=== PATIENT | female | born 1935 | race Caucasian/White ===

== ENCOUNTER 2017-02-16 18:17 | Inpatient (IN) | payer MEDICARE, OTHER ==
[~2017-02-16] VITALS: Ht 160 cm; Wt 59.1 kg
[~2017-02-16 18:17] MED LIST: ACET325T9 PO; ACET500T68 PO; ALBU1.25 NEB; ALLO100T PO; ATEN-57 PO; ATEN25TA PO; ATOR10TA60 PO; ATOR20TA PO; AZIT500T PO; CETI10TA16 PO; CLOT15CR4 TP; CYAN10005 PO; CYCL-331 PO; DEXT15DR5 OP; DEXT1DRO7 OP; DICL100G18 TP; DIVA125C PO; DOCU100C28 PO; DULO30CA2 PO; DULO30CA43 PO; DULO60CA6 PO; Divalproex Sodium PO; FERR325T72 PO; FLUT1DIS5 IH; FURO20TA3 PO; GABA-587 PO; GABA600T2 PO; GLUC1KIT IM; HALO2TAB PO; HALO5TAB PO; HYDR-2758 PO; HYDR25SU18 RC; HYDR25SU4 RC; HYDR28.311 RC; HYDR42CR2 TP; HYDR453. TP; INSU100I17 SQ; INSU100V13 SQ; INSU100V31 SQ; Ipratropium/Albuterol Sulfate NEB; LORA0.5T PO; LOSA50TA6 PO; MAG30ORA2 PO; MAG355OR31 PO; MAGN2400 PO; METH29OI TP; OMEP20TA8 PO; PANT40TA5 PO; POLY15DR27 OU; POLY17PO5 PO; POTA20TA4 PO; QUET25TA5 PO; QUET50TA5 PO; TIOT18CA IH; TRAZ-90 PO; TRAZ50TA15 PO; Trazodone Hcl PO; VANC125C2 PO; [UNRECOGNIZED DRUG - CODE] PO
--- NOTE | 2017-02-16 18:28 | PHYS DOC ---
Past History Past Medical History: Anemia, Anxiety, Bipolar, COPD, Depression, Diabetes, GERD, Hypertension, Schizophrenia, Other Past Surgical History: Cholecystectomy, Other Alcohol Use: None Drug Use: None Adult General Chief Complaint Chief Complaint: PSYCH EVALUATION [facility] HPI Patient is a 72 year old female who presents with psych evaluation medical clearance. She is being admitted to [facility] for hallucinations and agitation. She does have known schizoaffective disorder. She presents with complaint of chronic pain to her lower legs. Otherwise no other complaints or injuries. Review of Systems Review of Systems Constitutional: Denies fever or chills Eyes: Denies change in visual acuity, redness, or eye pain HENT: Denies nasal congestion or sore throat Respiratory: Denies cough or shortness of breath Cardiovascular: No additional information not addressed in HPI . Denies chest pain. GI: Denies abdominal pain, nausea, vomiting, bloody stools or diarrhea : Denies dysuria or hematuria Musculoskeletal: Denies back pain. Chronic pain to bilateral lower legs. Integument: Denies rash or skin lesions Neurologic: Denies headache, focal weakness or sensory changes Current Medications Current Medications Current Medications Medications (Trade) Dose Ordered Sig/Linda Start Time Stop Time Status Last Admin Dose Admin Ceftriaxone Sodium 1 gm/ Sodium Chloride 50 ml @ 100 mls/hr 1X ONCE 02/16/17 19:45 02/16/17 20:14 UNV Allergies Allergies Allergies Coded Allergies Type Severity Reaction Last Updated Verified Sulfa (Sulfonamide Antibiotics) Allergy Intermediate 03/14/15 Yes codeine Allergy Intermediate 03/14/15 Yes I S O L A T I O N *CONTACT* Allergy Unknown 03/18/15 Yes Physical Exam Physical Exam Constitutional: Well developed, well nourished, no acute distress, non-toxic appearance. HENT: Normocephalic, atraumatic, bilateral external ears normal, oropharynx moist, no oral exudates, nose normal. Eyes: PERRLA, EOMI, conjunctiva normal, no discharge. Neck: Normal range of motion, no tenderness, supple, no stridor. Cardiovascular:Heart rate regular rhythm, no murmur Lungs & Thorax: Bilateral breath sounds clear to auscultation Abdomen: Bowel sounds normal, soft, no tenderness, no masses, no pulsatile masses. Skin: Warm, dry, no erythema, no rash. Back: No tenderness, no CVA tenderness. Extremities: No tenderness, no cyanosis, no clubbing, ROM intact, no edema. Neurologic: Alert and oriented X 3, normal motor function, normal sensory function, no focal deficits noted. Psychologic: Affect normal, judgement normal, mood normal. Current Patient Data Vital Signs Vital Signs Date Time Temp Pulse Resp B/P (MAP) Pulse Ox O2 Delivery O2 Flow Rate FiO2 02/16/17 18:26 97.9 75 20 93 Room Air 124/80 Lab Results Laboratory Tests Test 02/16/17 18:55 White Blood Count 7.4 x10^3/uL Red Blood Count 4.04 x10^6/uL Hemoglobin 11.6 g/dL Hematocrit 34.3 % Mean Corpuscular Volume 85 fL Mean Corpuscular Hemoglobin 29 pg Mean Corpuscular Hemoglobin Concent 34 g/dL Red Cell Distribution Width 13.6 % Platelet Count 224 x10^3/uL Neutrophils (%) (Auto) 48 % Lymphocytes (%) (Auto) 38 % Monocytes (%) (Auto) 12 % Eosinophils (%) (Auto) 2 % Basophils (%) (Auto) 1 % Neutrophils # (Auto) 3.6 x10^3uL Lymphocytes # (Auto) 2.8 x10^3/uL Monocytes # (Auto) 0.9 x10^3/uL Eosinophils # (Auto) 0.2 x10^3/uL Basophils # (Auto) 0.0 x10^3/uL Urine Collection Type U cath Urine Color Straw Urine Clarity Hazy Urine pH 6.0 Urine Specific [place] 1.025 Urine Protein Neg Urine Glucose (UA) Neg mg/dL Urine Ketones (Stick) Neg mg/dL Urine Blood Neg Urine Nitrite Pos Urine Bilirubin Neg Urine Urobilinogen Dipstick 0.2 mg/dL Urine Leukocyte Esterase Neg Urine RBC 1-2 /HPF Urine WBC 5-10 /HPF Urine Squamous Epithelial Cells None /LPF Urine Bacteria Many /HPF Sodium Level 143 mmol/L Potassium Level 4.2 mmol/L Chloride Level 105 mmol/L Carbon Dioxide Level 35 mmol/L Anion Gap 3 Blood Urea Nitrogen 19 mg/dL Creatinine 1.0 mg/dL Estimated GFR (Cockcroft-Gault) 53.2 BUN/Creatinine Ratio 19 Glucose Level 142 mg/dL Calcium Level 8.8 mg/dL Magnesium Level 1.9 mg/dL Total Bilirubin 0.2 mg/dL Aspartate Amino Transf (AST/SGOT) 12 U/L Alanine Aminotransferase (ALT/SGPT) 14 U/L Alkaline Phosphatase 65 U/L Total Protein 6.6 g/dL Albumin 2.7 g/dL Albumin/Globulin Ratio 0.7 Current Medications Medications (Trade) Dose Ordered Sig/Linda Route PRN Reason Start Time Stop Time Status Last Admin Dose Admin Ceftriaxone Sodium 1 gm/ Sodium Chloride 50 ml @ 100 mls/hr 1X ONCE IV 02/16/17 19:45 02/16/17 20:14 UNV EKG EKG EKG interpreted by myself at 1820 5 PM. Heart rate is 82, normal axis. No acute ST elevation. Nonspecific ST changes. Course & Med Decision Making Course & Med Decision Making Pertinent Labs and Imaging studies reviewed. (See chart for details) Laboratory data was unremarkable except for a urinary tract infection. She was dosed with Rocephin 1 g IM here. She requested something for pain for her chronic bilateral lower leg pain. She is given Tylenol here by mouth. Patient otherwise been doing well here. She is constantly yelling stating "I need to see the doctor". Easily consolable however. Dragon Disclaimer Dragon Disclaimer This chart was dictated in whole or in part using Voice Recognition software in a busy, high-work load, and often noisy Emergency Department environment. It may contain unintended and wholly unrecognized errors or omissions. Departure Departure: Impression: Primary Impression: UTI (lower urinary tract infection) Additional Impressions: Hallucination Agitation Disposition: 65 XFER TO PSYCH HOSP/UNIT Condition: GOOD Referrals: ROBERT VO MD (PCP) Problem Qualifiers AMAN ESPINAL MD February 16, 2017 18:28
[2017-02-16 19:11] LABS: BASO % 1 % (0-3); EOS # 0.2 x10^3/uL (0.0-0.7); EOS % 2 % (0-3); HEMATOCRIT 34.3 % (36.0-47.0); HEMOGLOBIN 11.6 g/dL (12.0-15.5); LYMPH # 2.8 x10^3/uL (1.0-4.8); LYMPH % 38 % (24-48); MEAN CORPUSCULAR HEMOGLOBIN 29 pg (25-35); MEAN CORPUSCULAR HGB CONC 34 g/dL (31-37); MEAN CORPUSCULAR VOLUME 85 fL (79-100); MONO # 0.9 x10^3/uL (0.0-1.1); MONO % 12 % (0-9); NEUT # 3.6 x10^3uL (1.8-7.7); NEUT % 48 % (31-73); PLATELET COUNT 224 x10^3/uL (140-400); RED BLOOD COUNT 4.04 x10^6/uL (3.50-5.40); RED CELL DISTRIBUTION WIDTH 13.6 % (11.5-14.5); WHITE BLOOD COUNT 7.4 x10^3/uL (4.0-11.0)
[2017-02-16 19:21] LABS: ALBUMIN 2.7 g/dL (3.4-5.0); ALBUMIN/GLOBULIN RATIO 0.7 (1.0-1.7); CALCIUM 8.8 mg/dL (8.5-10.1); GFR 53.2; MAGNESIUM 1.9 mg/dL (1.8-2.4); POTASSIUM 4.2 mmol/L (3.5-5.1); TOTAL BILIRUBIN 0.2 mg/dL (0.2-1.0); TOTAL PROTEIN 6.6 g/dL (6.4-8.2)
[2017-02-16 19:29] LABS: BILIRUBIN,URINE NEG (NEG); CLARITY,URINE HAZY; COLOR,URINE STRAW; GLUCOSE,URINE NEG (NEG)
[2017-02-16 19:30] LABS: BACTERIA,URINE MANY /HPF (0-FEW); NITRITE,URINE POS (NEG); UROBILINOGEN,URINE 0.2 mg/dL (0.2 mg/dL)
--- NOTE | 2017-02-16 19:44 | EKG ---
[address] [address] Test Date: 2017-02-16 Test Time: 18:26:59 Pat Name: NATALYA CARNEY Department: Room: Gender: F Tentering Machine Off Bearer: LUIS ARMANDO : 1935 Requested By: AMAN ESPINAL Order Number: [id number] Reading MD: Jeremias Reynolds Measurements Intervals [place] Rate: 72 P: 62 AL: 180 QRS: 70 QRSD: 90 T: 62 QT: 374 QTc: 411 Interpretive Statements SINUS RHYTHM Electronically Signed On 02-17-2017 9:11:43 CDT by Jeremias Reynolds
[2017-02-16] MEDS ORDERED: ACETAMINOPHEN 500 MG TABLET PO ONE (20:15)
[2017-02-16] MEDS ORDERED: cefTRIAXone IM 1 GM VIAL IM ONE (20:15)
[2017-02-16] MEDS ORDERED: MAGNESIUM HYDROXIDE 2,400 MG/30 ML ORAL.SUSP. PO PRN (20:45)
[2017-02-16] MEDS ORDERED: MAG HYDROX/AL HYDROX/SIMETH 30 ML ORAL.SUSP PO PRN (20:45)
[2017-02-16] MEDS ORDERED: METHYL SALICYLATE/MENTHOL TOPICAL OINTMENT 29GM TUBE. TP PRN (20:45)
[2017-02-16] MEDS ORDERED: ACETAMINOPHEN 325 MG TABLET PO PRN (20:45)
[2017-02-16 20:48] VITALS: BP 141/64
[2017-02-16] MEDS ORDERED: NYST15PO9 TP (20:58)
--- NOTE | 2017-02-16 21:00 | PDOC ---
Exam Rohith Demential Exam: Rohith Note: Please also refer to the separate dictated note~for this date of service dictated separately.~Patient seen individually. Discussed the patient with Nursing staff reviewed the chart.~Reviewed interim history and current functioning. Reviewed vital signs,~Labs/ Radiology~and current medications noted below. Continue current treatment with the changes noted in the dictated addendum note Assessment: Vital Signs: Vital Signs Date Time Temp Pulse Resp B/P (MAP) Pulse Ox O2 Delivery O2 Flow Rate FiO2 02/16/17 20:48 98.4 73 20 141/64 (89) 98 Nasal Cannula 3.0 Labs: Laboratory Tests Test 02/16/17 18:55 White Blood Count 7.4 x10^3/uL (4.0-11.0) Red Blood Count 4.04 x10^6/uL (3.50-5.40) Hemoglobin 11.6 g/dL (12.0-15.5) L Hematocrit 34.3 % (36.0-47.0) L Mean Corpuscular Volume 85 fL (79-100) Mean Corpuscular Hemoglobin 29 pg (25-35) Mean Corpuscular Hemoglobin Concent 34 g/dL (31-37) Red Cell Distribution Width 13.6 % (11.5-14.5) Platelet Count 224 x10^3/uL (140-400) Neutrophils (%) (Auto) 48 % (31-73) Lymphocytes (%) (Auto) 38 % (24-48) Monocytes (%) (Auto) 12 % (0-9) H Eosinophils (%) (Auto) 2 % (0-3) Basophils (%) (Auto) 1 % (0-3) Neutrophils # (Auto) 3.6 x10^3uL (1.8-7.7) Lymphocytes # (Auto) 2.8 x10^3/uL (1.0-4.8) Monocytes # (Auto) 0.9 x10^3/uL (0.0-1.1) Eosinophils # (Auto) 0.2 x10^3/uL (0.0-0.7) Basophils # (Auto) 0.0 x10^3/uL (0.0-0.2) Urine Collection Type U cath Urine Color Straw Urine Clarity Hazy Urine pH 6.0 Urine Specific [place] 1.025 Urine Protein Neg (NEG-TRACE) Urine Glucose (UA) Neg mg/dL (NEG) Urine Ketones (Stick) Neg mg/dL (NEG) Urine Blood Neg (NEG) Urine Nitrite Pos (NEG) Urine Bilirubin Neg (NEG) Urine Urobilinogen Dipstick 0.2 mg/dL (0.2 mg/dL) Urine Leukocyte Esterase Neg (NEG) Urine RBC 1-2 /HPF (0-2) Urine WBC 5-10 /HPF (0-4) Urine Squamous Epithelial Cells None /LPF Urine Bacteria Many /HPF (0-FEW) Sodium Level 143 mmol/L (136-145) Potassium Level 4.2 mmol/L (3.5-5.1) Chloride Level 105 mmol/L (98-107) Carbon Dioxide Level 35 mmol/L (21-32) H Anion Gap 3 (6-14) L Blood Urea Nitrogen 19 mg/dL (7-20) Creatinine 1.0 mg/dL (0.6-1.0) Estimated GFR (Cockcroft-Gault) 53.2 BUN/Creatinine Ratio 19 (6-20) Glucose Level 142 mg/dL (70-99) H Calcium Level 8.8 mg/dL (8.5-10.1) Magnesium Level 1.9 mg/dL (1.8-2.4) Total Bilirubin 0.2 mg/dL (0.2-1.0) Aspartate Amino Transferase (AST) 12 U/L (15-37) L Alanine Aminotransferase (ALT) 14 U/L (14-59) Alkaline Phosphatase 65 U/L (46-116) Total Protein 6.6 g/dL (6.4-8.2) Albumin 2.7 g/dL (3.4-5.0) L Albumin/Globulin Ratio 0.7 (1.0-1.7) L Current Medications: Meds: Current Medications Ceftriaxone Sodium 1 gm/ Sodium Chloride 50 ml @ 100 mls/hr 1X ONCE IV ; Start 02/16/17 at 19:45; Stop 02/16/17 at 19:48; Status DC Ceftriaxone Sodium (Rocephin Im) 1 gm 1X ONCE IM Last administered on t 20:01; Start 02/16/17 at 20:15; Stop 02/16/17 at 20:16; Status DC Acetaminophen (Tylenol) 500 mg 1X ONCE PO ; Start 02/16/17 at 20:15; Stop 02/16 at 20:16; Status DC Acetaminophen (Tylenol) 650 mg PRN Q6HRS PRN PO PAIN / TEMP; Start 02/16/17 at 20:45; Status UNV Multi-Ingredient Ointment (Analgesic [place]) 1 j luis PRN QID PRN TP MUSCLE PAIN; Start 02/16/17 at 20:45; Status UNV Al Hydroxide/Mg Hydroxide (Mylanta Plus Xs) 15 ml PRN AFTMEALHC PRN PO DYSPEPSIA; Start 02/16/17 at 20:45; Status UNV Magnesium Hydroxide (Milk Of Magnesia) 2,400 mg PRN QHS PRN PO CONSTIPATION; Start 02/16/17 at 20:45; Status UNV Active Scripts Active [Trazodone Hcl] 100 MG Tablet 100 Mg PO QHS [Ipratropium/Albuterol Sulfate] 3 ML Nebu 3 Ml NEB RTQID Novolog Flexpen (Insulin Aspart) 300 Units/3 Ml Insuln.pen 8 Units SQ TIDAC [Divalproex Sodium] 125 MG Cap.sprink 500 Mg PO DAILY Lipitor (Atorvastatin Calcium) 20 Mg Tablet 20 Mg PO QHS Tenormin (Atenolol) 50 Mg Tablet 50 Mg PO DAILY Reported Nystatin 15 Gm Powder 1 J Luis TP PRN TID PRN Analgesic [place] (Methyl Salicylate/Menthol) 29 Gm Oint...g. 1 J Luis TP PRN QID PRN Seroquel (Quetiapine Fumarate) 50 Mg Tablet 50 Mg PO DAILY08 Acetaminophen 500 Mg Tablet 650 Mg PO PRN Q6HRS PRN Trazodone Hcl 100 Mg Tablet 100 Mg PO HS Artificial Tears (Polyvinyl Alcohol) 15 Ml Drops 1 Drop OU TID Pantoprazole Sodium 40 Mg Tablet.dr 40 Mg PO DAILYAC Mag-Al Plus Xs Suspension (Mag Hydrox/Al Hydrox/Simeth) 30 Ml Oral.susp 15 Ml PO PRN AFTMEALHC PRN Anucort-Hc (Hydrocortisone Acetate) 25 Mg Supp.rect 25 Mg RC PRN BID PRN Cortaid (Hydrocortisone) 42 Gm Cream..g. 1 J Luis TP BID Cymbalta (Duloxetine Hcl) 30 Mg Capsule.dr 30 Mg PO DAILY Voltaren (Diclofenac Sodium) 100 Gm Gel..gram. 1 J Luis TP PRN BID PRN Haloperidol 5 Mg Tablet 2.5 Mg PO PRN BID PRN Bipolar, Anxiety LAST DOSE GIVEN: DATE: TIME: NEXT DOSE DUE: DATE: TIME: Neurontin (Gabapentin) 400 Mg Capsule 400 Mg PO TID Pain LAST DOSE GIVEN: DATE: TIME: NEXT DOSE DUE: DATE: TIME: Miralax (Polyethylene Glycol 3350) 17 Gm Powd.pack 17 Gm PO PRN DAILY PRN Constipation LAST DOSE GIVEN: DATE: TIME: NEXT DOSE DUE: DATE: TIME: Milk Of Magnesia (Magnesium Hydroxide) 2,400 Mg/10 Ml Oral.susp 2,400 Mg PO PRN QHS PRN Constipation LAST DOSE GIVEN: DATE: TIME: NEXT DOSE DUE: DATE: TIME: Feosol (Ferrous Sulfate) 325 Mg Tablet 325 Mg PO DAILY Low Iron, Supplemnt LAST DOSE GIVEN: DATE: TIME: NEXT DOSE DUE: DATE: TIME: Depakote Sprinkle (Divalproex Sodium) 125 Mg Cap.sprink 500 Mg PO HS Bipolar LAST DOSE GIVEN: DATE: TIME: NEXT DOSE DUE: DATE: TIME: Tylenol (Acetaminophen) 325 Mg Tablet 650 Mg PO TID Pain LAST DOSE GIVEN: DATE: TIME: NEXT DOSE DUE: DATE: TIME: Clotrimazole 15 Gm Cream..g. 1 J Luis TP BID Yeast LAST DOSE GIVEN: DATE: TIME: NEXT DOSE DUE: DATE: TIME: Lorazepam 0.5 Mg Tablet 0.5 Mg PO PRN Q8HRS PRN Anxiety LAST DOSE GIVEN: DATE: TIME: NEXT DOSE DUE: DATE: TIME: Glucagon Emergency Kit (Glucagon,Human Recombinant) 1 Mg Kit 1 Mg IM PRN DAILY PRN Low blood sugar LAST DOSE GIVEN: DATE: TIME: NEXT DOSE DUE: DATE: TIME: Vitamin B-12 (Cyanocobalamin (Vitamin B-12)) 1,000 Mcg Tablet 1,000 Mcg PO DAILY Supplement LAST DOSE GIVEN: DATE: TIME: NEXT DOSE DUE: DATE: TIME: Seroquel (Quetiapine Fumarate) 25 Mg Tablet 100 Mg PO QHS Anxiety/Agitation LAST DOSE GIVEN: DATE: TIME: NEXT DOSE DUE: DATE: TIME: Losartan Potassium 50 Mg Tablet 50 Mg PO BID Hypertension LAST DOSE GIVEN: DATE: TIME: NEXT DOSE DUE: DATE: TIME: Docusate Sodium 100 Mg Capsule 100 Mg PO PRN DAILY PRN Constipation LAST DOSE GIVEN: DATE: TIME: NEXT DOSE DUE: DATE: TIME: Allopurinol 100 Mg Tablet 100 Mg PO DAILY Gout LAST DOSE GIVEN: DATE: TIME: NEXT DOSE DUE: DATE: TIME: Advair 500-50 Diskus (Fluticasone/Salmeterol) 1 Each Disk.w.dev 1 Puff IH BID SHORTNESS OF BREATH LAST DOSE GIVEN: DATE: TIME: NEXT DOSE DUE: DATE: TIME: Levemir (Insulin Detemir) 100 Unit/1 Ml Vial 12 Unit SQ BID Diabetes/high blood sugar LAST DOSE GIVEN: DATE: TIME: NEXT DOSE DUE: DATE: TIME: TORO JAY MD February 16, 2017 21:00
[2017-02-16] MEDS ORDERED: NITR0.4T SL (21:01)
[2017-02-16] MEDS ORDERED: ONDA4TAB10 PO (21:04)
[2017-02-16 21:07] LABS: VAL ACID 45 mcg/mL (50-100)
[2017-02-16] MEDS ORDERED: DIVA500T4 PO (21:07)
[2017-02-16] MEDS ORDERED: TRAZ50TA15 PO (21:09)
[2017-02-16] MEDS ORDERED: VENL75CA6 PO (21:13)
[2017-02-16] MEDS ORDERED: AMLO5TAB2 PO (21:16)
[2017-02-16] MEDS ORDERED: CARV12.52 PO (21:18)
[2017-02-16] MEDS ORDERED: TRAM50TA PO (21:19)
[2017-02-16] MEDS ORDERED: BUSP5TAB PO (21:23)
[2017-02-16] MEDS ORDERED: CLON1TAB3 PO (21:23)
[2017-02-16] MEDS ORDERED: IPRA3AMP NEB (21:32)
[2017-02-16] MEDS ORDERED: NITROGLYCERIN SUBLINGUAL 0.4 MG BOTTLE OF 25. SL PRN (22:15)
[2017-02-16] MEDS: traMADol 50 MG TABLET PO SCH (23:01)
[2017-02-16] MEDS: clonazePAM 1 MG TABLET PO SCH (23:01)
[2017-02-16] MEDS: traZODone 50 MG TABLET. PO SCH (23:02)
[2017-02-16] MEDS: amLODIPine BESYLATE 5 MG TABLET PO SCH (23:02)
[2017-02-16] MEDS: busPIRone 5 MG TABLET. PO SCH (23:04)
[2017-02-17] MEDS: traMADol 50 MG TABLET PO SCH ×4 (05:00→23:04)
[2017-02-17] MEDS: ALBUTEROL SULFATE 2.5 MG/3 ML NEBU. NEB SCH ×4 (05:37→20:00)
[2017-02-17] MEDS: busPIRone 5 MG TABLET. PO SCH ×3 (07:37→20:30)
[2017-02-17] MEDS: amLODIPine BESYLATE 5 MG TABLET PO SCH ×2 (07:39→20:33)
[2017-02-17] MEDS: clonazePAM 1 MG TABLET PO SCH (07:43)
[2017-02-17] MEDS ORDERED: NYSTATIN TOPICAL POWDER 15GM BOTTLE. TP PRN (07:45)
[2017-02-17] MEDS ORDERED: POLYETHYLENE GLYCOL 3350 17 GM PACKET. PO PRN (07:45)
[2017-02-17] MEDS ORDERED: MAG HYDROX/AL HYDROX/SIMETH 30 ML ORAL.SUSP PO PRN (07:45)
[2017-02-17] MEDS ORDERED: ONDANSETRON ODT 4 MG TAB.RAPDIS PO PRN (07:45)
[2017-02-17] MEDS: CARVEDILOL 12.5 MG TABLET PO SCH ×2 (07:56→16:44)
[2017-02-17] MEDS ORDERED: MAGNESIUM HYDROXIDE 2,400 MG/30 ML ORAL.SUSP. PO PRN (08:00)
[2017-02-17] MEDS ORDERED: DIVALPROEX ER 500 MG TAB.ER.24H PO SCH (09:00)
[2017-02-17] MEDS ORDERED: VENLAFAXINE XR 37.5 MG CAP.ER.24H. PO SCH (09:00)
[2017-02-17] MEDS ORDERED: QUEtiapine 100 MG TABLET. PO SCH (09:00)
[2017-02-17] MEDS ORDERED: SALMETEROL IH SCH (09:00)
[2017-02-17] MEDS ORDERED: DIVALPROEX 125 MG CAP.SPRINK PO SCH (09:00)
[2017-02-17] MEDS ORDERED: FLUTICASONE IH SCH (09:00)
[2017-02-17] MEDS ORDERED: LOSARTAN 50 MG TABLET. PO SCH (09:00)
[2017-02-17] MEDS: ACETAMINOPHEN 325 MG TABLET PO PRN ×2 (10:07→18:20)
[2017-02-17] MEDS: IPRATRPIUM/ALBUTEROL 0.5/2.5MG 3 ML NEBU. NEB PRN ×2 (10:27→15:48)
[2017-02-17] MEDS: BUDESONIDE 0.5 MG/2 ML NEBU NEB SCH ×2 (10:27→20:00)
[2017-02-17 13:36] LABS: THYROID STIM HORMONE (TSH) 2.71 uIU/mL (0.358-3.740)
[2017-02-17 16:04] VITALS: BP 114/54
--- NOTE | 2017-02-17 20:31 | PDOC ---
Exam Rohith Demential Exam: Rohith Note: Please also refer to the separate dictated note~for this date of service dictated separately.~Patient seen individually. Discussed the patient with Nursing staff reviewed the chart.~Reviewed interim history and current functioning. Reviewed vital signs,~Labs/ Radiology~and current medications noted below. Continue current treatment with the changes noted in the dictated addendum note Assessment: Vital Signs: Vital Signs Date Time Temp Pulse Resp B/P (MAP) Pulse Ox O2 Delivery O2 Flow Rate FiO2 02/17/17 18:16 20 97 Nasal Cannula 3.0 02/17/17 16:44 63 114/54 02/17/17 16:04 97.2 I&O Intake and Output 02/17/17 07:00 Intake Total 360 ml Balance 360 ml Intake Oral 360 ml # Bowel Movements 1 Labs: Laboratory Tests Test 02/17/17 07:26 02/17/17 11:37 02/17/17 16:42 02/17/17 19:20 Glucose (Fingerstick) 101 mg/dL (70-99) H 161 mg/dL (70-99) H 155 mg/dL (70-99) H 150 mg/dL (70-99) H Current Medications: Meds: Current Medications Ceftriaxone Sodium 1 gm/ Sodium Chloride 50 ml @ 100 mls/hr 1X ONCE IV ; Start 02/16/17 at 19:45; Stop 02/16/17 at 19:48; Status DC Ceftriaxone Sodium (Rocephin Im) 1 gm 1X ONCE IM Last administered on 20:01; Start 02/16/17 at 20:15; Stop 02/16/17 at 20:16; Status DC Acetaminophen (Tylenol) 500 mg 1X ONCE PO Last administered on 02/16/17t 20:30 ; Start 02/16/17 at 20:15; Stop 02/16/17 at 20:16; Status DC Acetaminophen (Tylenol) 650 mg PRN Q6HRS PRN PO PAIN / TEMP; Start 02/16/17 at 20:45; Stop 02/17/17 at 07:49; Status DC Multi-Ingredient Ointment (Analgesic [place]) 1 j luis PRN QID PRN TP MUSCLE PAIN; Start 02/16/17 at 20:45 Al Hydroxide/Mg Hydroxide (Mylanta Plus Xs) 15 ml PRN AFTMEALHC PRN PO DYSPEPSIA; Start 02/16/17 at 20:45 Magnesium Hydroxide (Milk Of Magnesia) 2,400 mg PRN QHS PRN PO CONSTIPATION; Start 02/16/17 at 20:45; Stop 02/17/17 at 07:50; Status DC Buspirone HCl (Buspar) 7.5 mg TID PO Last administered on 02/17/17 13:11; Start 02/16/17 at 22:30 Clonazepam (KlonoPIN) 1 mg BID PO Last administered on 02/17/17 07:43; Start 02/16/17 at 22:30; Stop 02/17/17 at 18:06; Status DC Divalproex Sodium (Depakote Er) 500 mg DAILY PO ; Start 02/17/17 at 09:00; Stop 02/17/17 at 09:00; Status DC Quetiapine Fumarate (SEROquel) 100 mg DAILY PO Last administered on 02/17/17 07:43; Start 02/17/17 at 09:00 Trazodone HCl (Desyrel) 50 mg QHS PO Last administered on 02/16/17 23:02; Start 02/16/17 at 22:30 Venlafaxine HCl (Effexor Xr) 75 mg DAILY PO Last administered on 02/17/17 07: 42; Start 02/17/17 at 09:00 Amlodipine Besylate (Norvasc) 5 mg BID PO Last administered on 02/17/17 07:39 ; Start 02/16/17 at 22:30 Nitroglycerin (Nitrostat) 0.4 mg PRN Q5MIN PRN SL CHEST PAIN; Start 02/16/17 at 22:15 Tramadol HCl (Ultram) 50 mg Q6HRS PO Last administered on 02/17/17 16:44; Start 02/17/17 at 00:00 Non-Formulary Medication 2 puff BID IH ; Start 02/17/17 at 09:00; Status UNV Albuterol Sulfate (Ventolin) 2.5 mg RTQID NEB Last administered on 02/17/17 10 :25; Start 02/17/17 at 08:00 Budesonide (Pulmicort) 0.5 mg RTBID NEB Last administered on 5/17/17at 10:27; Start 02/17/17 at 08:00 Acetaminophen (Tylenol) 650 mg PRN Q4HRS PRN PO PAIN / TEMP Last administered on 02/17/17 18:20; Start 02/17/17 at 08:00 Carvedilol (Coreg) 12.5 mg BIDWMEALS PO Last administered on 02/17/17 16:44; Start 02/17/17 at 08:00 Albuterol/ Ipratropium (Duoneb) 3 ml PRN QID PRN NEB SHORTNESS OF BREATH Last administered on 02/17/17 15:48; Start 02/17/17 at 07:45 Losartan Potassium (Cozaar) 50 mg DAILY PO Last administered on 02/17/17 07:56 ; Start 02/17/17 at 09:00 Al Hydroxide/Mg Hydroxide (Mylanta Plus Xs) 15 ml PRN AFTMEALHC PRN PO DYSPEPSIA; Start 02/17/17 at 07:45; Status UNV Nystatin (Nystop) 1 j luis PRN TID PRN TP Redness; Start 02/17/17 at 07:45 Ondansetron HCl (Zofran Odt) 4 mg PRN TID PRN PO NAUSEA/VOMITING; Start at 07:45 Polyethylene Glycol (miraLAX) 17 gm PRN DAILY PRN PO constipation; Start at 07:45 Magnesium Hydroxide (Milk Of Magnesia) 2,400 mg PRN DAILY PRN PO CONSTIPATION; Start 02/17/17 at 08:00 Divalproex Sodium (Depakote Sprinkles) 500 mg DAILY PO Last administered on 07:57; Start 02/17/17 at 09:00 Olanzapine (Zyprexa Zydis) 2.5 mg PRN Q2HR PRN PO PSYCHOSIS Last administered on 02/17/17 09:34; Start 02/17/17 at 09:30 Clonazepam (KlonoPIN) 0.5 mg TID PO ; Start 02/18/17 at 09:00; Stop 02/20/17 at 23:00 Clonazepam (KlonoPIN) 0.5 mg BID PO ; Start 02/21/17 at 09:00 Mirtazapine (Remeron) 7.5 mg QHS PO ; Start 02/17/17 at 21:00 Active Scripts Active Reported Duoneb 0.5-3(2.5) Mg/3 Ml (Albuterol/Ipratropium) 3 Ml Ampul.neb 3 Ml NEB PRN QID PRN Clonazepam 1 Mg Tablet 1 Mg PO BID Buspirone Hcl 5 Mg Tablet 7.5 Mg PO TID Tramadol Hcl (Tramadol HCl) 50 Mg Tablet 50 Mg PO Q6HRS To be given at 1200, 1800, 0000, 0600 Carvedilol 12.5 Mg Tablet 12.5 Mg PO BIDWMEALS Amlodipine Besylate 5 Mg Tablet 5 Mg PO BID Venlafaxine Hcl Er (Venlafaxine Hcl) 75 Mg Cap.er.24h 75 Mg PO DAILY Trazodone Hcl 50 Mg Tablet 50 Mg PO QHS Depakote Er (Divalproex Sodium) 500 Mg Tab.er.24h 500 Mg PO DAILY Zofran Odt (Ondansetron) 4 Mg Tab.rapdis 4 Mg PO PRN TID PRN Nitrostat (Nitroglycerin) 0.4 Mg Tab.subl 0.4 Mg SL PRN PRN Give one tab Q 5 minutes x3 doses for Chest Pain Nystatin 15 Gm Powder 1 J Luis TP PRN TID PRN Acetaminophen 500 Mg Tablet 650 Mg PO PRN Q4HRS PRN Mag-Al Plus Xs Suspension (Mag Hydrox/Al Hydrox/Simeth) 30 Ml Oral.susp 15 Ml PO PRN AFTMEALHC PRN Miralax (Polyethylene Glycol 3350) 17 Gm Powd.pack 17 Gm PO DAILY PRN Constipation LAST DOSE GIVEN: DATE: TIME: NEXT DOSE DUE: DATE: TIME: Milk Of Magnesia (Magnesium Hydroxide) 2,400 Mg/10 Ml Oral.susp 2,400 Mg PO PRN DAILY PRN Constipation LAST DOSE GIVEN: DATE: TIME: NEXT DOSE DUE: DATE: TIME: Seroquel (Quetiapine Fumarate) 25 Mg Tablet 100 Mg PO DAILY Anxiety/Agitation LAST DOSE GIVEN: DATE: TIME: NEXT DOSE DUE: DATE: TIME: Losartan Potassium 50 Mg Tablet 50 Mg PO DAILY Hypertension LAST DOSE GIVEN: DATE: TIME: NEXT DOSE DUE: DATE: TIME: Advair 500-50 Diskus (Fluticasone/Salmeterol) 1 Each Disk.w.dev 2 Puff IH BID SHORTNESS OF BREATH LAST DOSE GIVEN: DATE: TIME: NEXT DOSE DUE: DATE: TIME: TORO JAY MD February 17, 2017 20:31
[2017-02-17] MEDS: traZODone 50 MG TABLET. PO SCH (20:33)
[2017-02-17] MEDS ORDERED: MIRTAZAPINE 7.5 MG TABLET. PO SCH (21:00)
[2017-02-18 00:09] LABS: T3 TOTAL 91 ng/dL (71-180); THYROXINE 5.9 ug/dL (4.5-12.0)
[2017-02-18 02:09] LABS: HEMOGLOBIN A1C 5.5 % (4.8-5.6)
[2017-02-18] MEDS: ALBUTEROL SULFATE 2.5 MG/3 ML NEBU. NEB SCH (05:29)
[2017-02-18 05:42] VITALS: BP 138/59
[2017-02-18] MEDS ORDERED: ACETAMINOPHEN 500 MG TABLET PO ONE (06:00)
[2017-02-18] MEDS: traMADol 50 MG TABLET PO SCH (06:00)
[2017-02-18 06:07] LABS: HEMATOCRIT 39.1 % (36.0-47.0); HEMOGLOBIN 13.1 g/dL (12.0-15.5); RED BLOOD COUNT 4.65 x10^6/uL (3.50-5.40); RED CELL DISTRIBUTION WIDTH 14.1 % (11.5-14.5); WHITE BLOOD COUNT 18.3 x10^3/uL (4.0-11.0)
[2017-02-18 06:20] LABS: BGAS PH 7.4 (7.35-7.45)
[2017-02-18 06:27] LABS: ALBUMIN/GLOBULIN RATIO 0.7 (1.0-1.7); CREATININE 0.9 mg/dL (0.6-1.0); GFR 60.1; POTASSIUM 4.6 mmol/L (3.5-5.1); TOTAL BILIRUBIN 0.4 mg/dL (0.2-1.0); TOTAL PROTEIN 7.4 g/dL (6.4-8.2)
[2017-02-18 06:46] LABS: BACTERIA,URINE 0 /HPF (0-FEW); BILIRUBIN,URINE NEG (NEG); CLARITY,URINE CLEAR; COLOR,URINE YELLOW; GLUCOSE,URINE NEG (NEG); NITRITE,URINE NEG (NEG); RBC,URINE RARE /HPF (0-2); SQUAMOUS EPITHELIAL CELL,UR OCC /LPF; UROBILINOGEN,URINE 0.2 mg/dL (0.2 mg/dL); WBC,URINE RARE /HPF (0-4)
--- NOTE | 2017-02-18 06:57 | RAD ---
INDICATION: Fever and shortness of air COMPARISON: March 2015 FINDINGS: 1 view of chest obtained. Coarsened lung markings throughout bilateral lungs with possible mild hazy opacity right lower lung. Calcific atherosclerosis aorta. Cardiac silhouette not grossly enlarged. Degenerative changes spine. IMPRESSION: Possible mild hazy opacity right lung base. Although this could be from overlap of structures a focus of atelectasis or infiltrate is in the differential. Would obtain follow-up to ensure that this resolves. There is also fullness of the right pulmonary hilum. Could be from a prominent pulmonary artery but cannot exclude enlarged lymph nodes in the region. If further clarification is desired a formal PA and lateral chest radiograph could further evaluate. Coarsened lung markings throughout bilateral lungs. Could be from causes such as emphysema. Electronically signed by: Christos Thompson (February 18, 2017 06:56:32)
[2017-02-18] MEDS ORDERED: CLON0.5T PO (07:03)
[2017-02-18] MEDS ORDERED: clonazePAM 0.5 MG TABLET PO SCH (09:00)
[2017-02-18] MEDS ORDERED: ALBU2.5V5 NEB (11:17)
[2017-02-18] MEDS ORDERED: BUDE0.5A11 NEB (11:19)
[2017-02-18] MEDS ORDERED: METH29OI TP (11:26)
[2017-02-18] MEDS ORDERED: MIRT15TA2 PO (11:28)
[2017-02-18] MEDS ORDERED: OLAN5TAB9 PO (11:31)
--- NOTE | 2017-02-18 22:52 | HP ---
ADMIT DATE: 02/16/2017 IDENTIFYING DATA: The patient is an 81-year-old female referred to us from [facility] by Dr. Gemma Saleh, her primary care physician and Dr. Otto her psychiatrist on account of yelling, hitting, name calling, recent treatment for UTI. She has been non-redirectable, delusional, believes people are killing babies, has convinced other residents at the [facility] is her brother. Adjustments have been made in her psychotropics by Dr. Otto at the [facility]. She has failed all of this resulting in this referral. CHIEF COMPLAINT: "Get out." HISTORY OF PRESENT ILLNESS: The patient has a history of schizoaffective disorder, bipolar type. She has been residing at the above [facility] for some time. In the recent past, she has been increasingly psychotic as noted above verbally, physically aggressive, delusional. She has had sleep and appetite changes. No clear suicidal or homicidal ideation noted. She has failed outpatient psychiatric interventions. PAST PSYCHIATRIC HISTORY: Positive for schizoaffective disorder, bipolar type; generalized anxiety disorder. PAST MEDICAL HISTORY: Recently treated for UTI, positive for COPD, diabetes mellitus, GERD, hypertension, peripheral vascular disease, hypothyroidism, hyperlipidemia, anemia. She is a full code. ALLERGIES: SULFA AND CODEINE. CURRENT PSYCHOTROPICS: [facility]AD was reviewed. FAMILY HISTORY: Noncontributory. SOCIAL HISTORY: No alcohol, drug abuse, physical, sexual or elder abuse history is noted. She is not known to be a perpetrator. MENTAL STATUS EXAMINATION: The patient is oriented to herself and situation. Speech is coherent. She is quite psychotic, paranoid, delusional. Attention span short. Language function intact. Mood and affect labile. Intellect average. Insight limited, judgment marginal. No active suicidal or homicidal ideation noted. Respirations 20, O2 sats 96%, pulse 78. IMPRESSION: Schizoaffective disorder, bipolar type, mixed with psychotic features; anxiety disorder, unspecified; impulse control disorder, unspecified. Rest diagnoses unchanged. PLAN: We will admit to the Geropsychiatry unit at [facility]. I will see the patient daily individually. Request medical followup with Dr. Junior/Dr. Rodriguez. UA was positive. Culture is pending. She has received Rocephin. We will defer this to Dr. Junior. Make further adjustments in psychotropics once she is medically stable. MAN Сергей JAY MD DR: JOSE L/cayetano JOB#: [id number] / [id number]
--- NOTE | 2017-02-19 00:58 | DS ---
DATE OF DISCHARGE: 02/18/2017 DISCHARGE SUMMARY/PSYCHIATRIC PROGRESS NOTE REASON FOR ADMISSION: Please refer to the admission history for details. Briefly, the patient is an 81-year-old female referred to us from [facility] on the account of acute exacerbation of her schizoaffective disorder, bipolar type. She failed outpatient psychiatric interventions with Dr. Otto, who was yelling, hitting, calling known regrettable, delusional about if she is being killed amongst many other things there. She believes she was with Jordy Mccall and the anaya, smeared feces on the wall. SIGNIFICANT FINDINGS AND CLINICAL COURSE: Following admission, the patient was seen by myself and from a psychiatric standpoint, medical followup with Dr. Junior. She was found to have a UTI and was septic and transferred to [address] [place] [address] Medical surgical floor on 02/18/2017. Prior to the transfer, temperature 101.1, BP 138/59, pulse 86, respirations 24. REVIEW OF SYSTEMS: No CV, , pulmonary, eye, ENT system symptoms on review. MENTAL STATUS EXAM: Oriented to herself and situation. Speech coherent. She is quite delusional, psychotic. No active suicidal or homicidal ideation. FINAL DIAGNOSES: Schizoaffective disorder, bipolar type, mixed with psychotic features; anxiety disorder, unspecified; impulse control disorder, unspecified, urinary tract infection and sepsis. The rest of the diagnoses are unchanged. DISCHARGE MEDICATIONS: Please refer to the MRAD. Outpatient psychiatric and Medical followup on [address] [place] [address] Junior and I will see her there if requested. TORO JAY MD DR: JOSE L/cayetano JOB#: [id number] / [id number]
--- NOTE | 2017-02-19 01:38 | PN ---
DATE: 02/18/2017 PROGRESS/TRANSFER NOTE DISPOSITION: To medical floor, . REASON FOR DISPOSITION: Fever of 101 and needing further medical care, also possible UTI and leukocytosis. The [facility] was [facility] for yelling, hitting, name calling and behaviors. She had previously been treated for two UTIs. The patient was not seen up on the [facility] will be done on . ASSESSMENT: Fever, leukocytosis, probable urinary tract infection. PLAN: We will do full evaluation on . IVAN LANGE DO DR: SID/cayetano JOB#: [id number] / [id number]
[2017-02-19] MEDS ORDERED: CHOL10003 PO (12:22)
[2017-02-19] MEDS ORDERED: INSU100C4 SQ (12:29)
[2017-02-19] MEDS ORDERED: ENOX40DI SQ (12:29)
[2017-02-19] MEDS ORDERED: PREN1TAB58 PO (12:38)
[2017-02-19] MEDS ORDERED: DOXY100T PO (12:40)
[2017-02-19] MEDS ORDERED: MAG355OR12 PO (15:15)
[2017-02-19] MEDS ORDERED: CLON0.5T3 PO (16:10)
[2017-02-21] MEDS ORDERED: clonazePAM 0.5 MG TABLET PO SCH (09:00)
== END 2017-02-18 07:20 | disposition short-term general hospital (02) | DRG 885 ==
LOC: ER 18:17 → GEROPSY 20:05
PROVIDERS: ADMIT Psychiatry & Neurology Psychiatry; ATTEND Psychiatry & Neurology Psychiatry
DX: F25.0 Schizoaffective disorder, bipolar type (principal); A41.9 Sepsis, unspecified organism; N39.0 Urinary tract infection, site not specified; F32.9 Major depressive disorder, single episode, unspecified; F41.1 Generalized anxiety disorder; E78.5 Hyperlipidemia, unspecified; E11.51 Type 2 diabetes mellitus with diabetic peripheral angiopathy without gangrene; E03.9 Hypothyroidism, unspecified; F63.9 Impulse disorder, unspecified; G89.29 Other chronic pain; I10 Essential (primary) hypertension; J44.9 Chronic obstructive pulmonary disease, unspecified; K21.9 Gastro-esophageal reflux disease without esophagitis; Z87.440 Personal history of urinary (tract) infections; Z90.49 Acquired absence of other specified parts of digestive tract
CPT/HCPCS: 36415; 51701; 71010; 80053; 80061; 80164; 81001; 82306; 82607; 82803; 82947; 83036; 83540; 83550; 83605; 83735; 84436; 84443; 84480; 85027; 86592; 86593; 87040; 87086; 87186; 93005; 94640; 94760; 96372; J0696; J7613; J7620; J7626; 99285-25

== ENCOUNTER 2017-02-18 07:18 | Inpatient (IN) | payer MEDICARE, OTHER ==
[~2017-02-18] VITALS: Ht 165.1 cm; Wt 62.9 kg
[~2017-02-18 07:18] MED LIST changes: +AMLO5TAB2 PO; +BUSP5TAB PO; +CARV12.52 PO; +CLON0.5T PO; +CLON1TAB3 PO; +DIVA500T4 PO; +IPRA3AMP NEB; +NITR0.4T SL; +NYST15PO9 TP; +ONDA4TAB10 PO; +TRAM50TA PO; +VENL75CA6 PO
[2017-02-18 08:00] VITALS: BP 112/62
[2017-02-18] MEDS ORDERED: NITROGLYCERIN SUBLINGUAL 0.4 MG BOTTLE OF 25. SL PRN (09:00)
[2017-02-18] MEDS ORDERED: ONDANSETRON ODT 4 MG TAB.RAPDIS PO PRN (09:00)
[2017-02-18] MEDS ORDERED: MAG HYDROX/AL HYDROX/SIMETH 30 ML ORAL.SUSP PO PRN (09:00)
[2017-02-18] MEDS ORDERED: POLYETHYLENE GLYCOL 3350 17 GM PACKET. PO PRN (09:00)
[2017-02-18] MEDS ORDERED: IPRATRPIUM/ALBUTEROL 0.5/2.5MG 3 ML NEBU. NEB PRN (09:00)
[2017-02-18] MEDS: amLODIPine BESYLATE 5 MG TABLET PO SCH ×2 (09:00→21:47)
[2017-02-18] MEDS ORDERED: NYSTATIN TOPICAL POWDER 15GM BOTTLE. TP PRN (09:00)
[2017-02-18] MEDS ORDERED: FLUTICASONE IH SCH (09:00)
[2017-02-18] MEDS: LOSARTAN 50 MG TABLET. PO SCH (09:00)
[2017-02-18] MEDS ORDERED: SALMETEROL IH SCH (09:00)
[2017-02-18] MEDS ORDERED: MAGNESIUM HYDROXIDE 2,400 MG/30 ML ORAL.SUSP. PO PRN (09:15)
[2017-02-18] MEDS ORDERED: ACETAMINOPHEN 325 MG TABLET PO PRN (09:15)
[2017-02-18] MEDS: QUEtiapine 100 MG TABLET. PO SCH (09:46)
[2017-02-18] MEDS: BUDESONIDE 0.5 MG/2 ML NEBU NEB SCH ×2 (09:46→20:39)
[2017-02-18] MEDS: clonazePAM 0.5 MG TABLET PO SCH ×3 (09:46→21:00)
[2017-02-18 10:44] VITALS: BP 119/53
[2017-02-18] MEDS ORDERED: ALBU2.5V5 NEB (11:17)
[2017-02-18] MEDS ORDERED: BUDE0.5A11 NEB (11:19)
[2017-02-18] MEDS ORDERED: METH29OI TP (11:26)
[2017-02-18] MEDS ORDERED: MIRT15TA2 PO (11:28)
[2017-02-18] MEDS ORDERED: OLAN5TAB9 PO (11:31)
[2017-02-18] MEDS ORDERED: ALBUTEROL SULFATE 2.5 MG/3 ML NEBU. NEB SCH (12:00)
[2017-02-18] MEDS: CARVEDILOL 12.5 MG TABLET PO SCH ×2 (12:46→21:56)
[2017-02-18] MEDS: AZITHROMYCIN 500 MG in IV NORMAL SALINE 250ML 250 ML IV SCH (12:46)
[2017-02-18] MEDS: busPIRone 5 MG TABLET. PO SCH ×3 (12:48→21:44)
[2017-02-18] MEDS: VENLAFAXINE XR 37.5 MG CAP.ER.24H. PO SCH (12:50)
[2017-02-18] MEDS: DIVALPROEX 125 MG CAP.SPRINK PO SCH (12:50)
[2017-02-18] MEDS: traMADol 50 MG TABLET PO SCH ×2 (12:50→21:45)
[2017-02-18] MEDS ORDERED: ALBUTEROL SULFATE 2.5 MG/3 ML NEBU. NEB PRN (13:15)
[2017-02-18] MEDS ORDERED: OLANZapine 5 MG TABLET PO PRN (13:15)
[2017-02-18] MEDS ORDERED: methylPREDNISolone SOD SUCC PF 40 MG/ML VIAL. IV ONE (13:30)
--- NOTE | 2017-02-18 13:49 | HP ---
ADMIT DATE: 02/18/2017 REASON FOR TRANSFER FROM [facility]: Fever, leukocytosis. HISTORY OF PRESENT ILLNESS: This is an 81-year-old female, who was admitted late on 02/16/2017 up to the [facility] from [facility] where she had been yelling, hitting, name calling. She had previously been treated twice for urinary tract infection. Early this a.m. her vital signs are being taken. She was found to be lethargic with 101 temperature and was transferred down to the medical floor. PAST MEDICAL HISTORY: She has a previous admission to the [facility] on 03/19/2015 because of increasing anger outbursts. PAST MEDICAL HISTORY: COPD, type 2 diabetes, hypertension, schizoaffective disorder, bipolar disorder, schizophrenia, depression, anxiety, anemia, polyneuropathy, history of urinary tract infections, conduct disorder and personality disorder. PAST SURGICAL HISTORY: Cholecystectomy, oophorectomy, for tubal . ALLERGIES: SULFA and CODEINE. MEDICATIONS: Reviewed and were corrected and are correct on the MAR. She is having her clonazepam decreased. REVIEW OF SYSTEMS: The patient currently is very agitated and accusing as of not allowing her to call her daughter. She stating "I worked for the [employer] and I know [employer] people." Her behavior is somewhat paranoid. It was the second time in the room with her. The first time she was very cooperative and calm. Not complaining of anything in particular except for people not treating her right. OBJECTIVE: VITAL SIGNS: Blood pressure 119/53, pulse 76, respirations 20, temperature 98.1 and pulse ox taken by me was 83% on 1 liter, increasing it to 2 liters brought up to 94%. HEENT: Her hearing is normal. Her eyes are clear. Nose is patent. Her throat is clear. She is edentulous. The posterior pharynx was normal in appearance. NECK: Supple. LUNGS: With expiratory wheezes, distant lung sounds. CARDIOVASCULAR: Regular rhythm and rate. ABDOMEN: Soft, nontender. EXTREMITIES: Without edema. LABORATORY DATA: Her white count from the lab done upstairs is 18.3, 12% monocytes. Sed rate of 47. ABG: pH 7.40, pCO2 of 48, pO2 of 66, level 45. Chemistry: Low iron of 43, albumin is 3.0, low vitamin D of 25. B12 of 450. Chest x-ray: There is a hazy opacity in the right lung base, possible infiltrate. ASSESSMENT: 1. Acute on chronic respiratory failure 2. Pneumonia. 3. Pneumonia with leukocytosis. 4. Schizoaffective disorder with paranoia. 5. Vitamin D deficiency. 6. Moderate protein malnutrition. 7. Iron deficiency. 8. Acute on chronic hypercapnic hypoxemic respiratory failure. PLAN: Will need breathing treatments and keep her up a little bit more oxygen without decreasing her respiratory drive. IVAN LANGE DO DR: SID/cayetano JOB#: [id number] / [id number]
[2017-02-18] MEDS: IPRATRPIUM/ALBUTEROL 0.5/2.5MG 3 ML NEBU. NEB SCH ×2 (14:00→20:39)
[2017-02-18 14:24] VITALS: BP 128/61
[2017-02-18] MEDS ORDERED: PRENATAL MULTIVITAMIN TABLET. PO SCH (17:00)
[2017-02-18] MEDS ORDERED: MIRTAZAPINE 15 MG TAB.RAPDIS PO SCH (21:00)
[2017-02-18] MEDS ORDERED: MIRTAZAPINE 7.5 MG TABLET. PO SCH (21:00)
[2017-02-18] MEDS ORDERED: ENOXAPARIN 40 MG/0.4 ML DISP.SYRIN. SQ SCH (21:00)
[2017-02-18] MEDS ORDERED: traZODone 50 MG TABLET. PO SCH (21:00)
[2017-02-18] MEDS ORDERED: BUDESONIDE 0.5 MG/2 ML NEBU NEB SCH (21:00)
[2017-02-18 21:51] VITALS: BP 129/67
[2017-02-18] MEDS: CHOLECALCIFEROL (VITAMIN D3) 1,000 UNIT TABLET PO SCH (21:56)
[2017-02-19] MEDS: traMADol 50 MG TABLET PO SCH ×3 (00:24→11:39)
--- NOTE | 2017-02-19 00:49 | ACF ---
Admission Criteria Forms RESPIRATORY FAILURE GRG Clinical Indications for Admission to Inpatient Care (Place 'X' for any and all applicable criteria): Hospital admission is needed for appropriate care of the patient because of acute respiratory failure or insufficiency as indicated by ANY ONE of the following(1)(2)(3)(4)(5)(6)(7)(8): [ ]I. Mechanical ventilation needed (acute invasive or noninvasive) [X ]II. Severe ventilation deficit as indicated by ANY ONE of the following (9 ) [ ]a) Respiratory acidosis (pH less than 7.32 and partial pressure of carbon dioxide greater than 40 mm Hg (5.3 kPa)) [X ]b) Partial pressure of carbon dioxide greater than 44 mm Hg (5.9 kPa) (new) [ ]c) Airflow measurements less than 25% of predicted (eg, peak expiratory flow rate less than 100 L/minute) [ ]d) Forced vital capacity less than 15 mL/kg of ideal body weight, or 50% decrease in vital capacity from baseline [ ]III. Noncardiac pulmonary edema not resolving with rapid emergency treatment (8) [ ]IV. Severe respiratory distress as indicated by ANY ONE of the following: [ ]a) Severe tachypnea (respiratory rate greater than 30, greater than 45 for 6-month-old, greater than 60 for ) [ ]b) Severe hypoxemia (partial pressure of oxygen less than 50 mm Hg ( 6.7 kPa) on greater than 50% oxygen or partial pressure of oxygen to FIO2 ratio less than 200) [ ]c) Mental status deterioration from respiratory disease [ ]V. Airway obstruction or inadequate protection [A](10)(11) The original [employer] content created by [employer] has been revised. The portions of the content which have been revised are identified through the use of italic text or in bold, and [employer] has neither reviewed nor approved the modified material. All other unmodified content is copyright [employer] Please see references footnoted in the original [employer] edition 2016 Admission Criteria Met?: Yes FARZANA DRAKE February 19, 2017 00:49
[2017-02-19 05:43] VITALS: BP 135/56
[2017-02-19] MEDS: IPRATRPIUM/ALBUTEROL 0.5/2.5MG 3 ML NEBU. NEB SCH (05:55)
[2017-02-19] MEDS ORDERED: IV NORMAL SALINE 250ML 250 ML ONE (08:25)
[2017-02-19] MEDS: QUEtiapine 100 MG TABLET. PO SCH (08:34)
[2017-02-19] MEDS: LOSARTAN 50 MG TABLET. PO SCH (08:35)
[2017-02-19] MEDS: amLODIPine BESYLATE 5 MG TABLET PO SCH (08:35)
[2017-02-19] MEDS: CARVEDILOL 12.5 MG TABLET PO SCH (08:35)
[2017-02-19] MEDS: busPIRone 5 MG TABLET. PO SCH (08:37)
[2017-02-19] MEDS: clonazePAM 0.5 MG TABLET PO SCH (08:37)
[2017-02-19] MEDS: VENLAFAXINE XR 37.5 MG CAP.ER.24H. PO SCH (08:39)
[2017-02-19] MEDS: DIVALPROEX 125 MG CAP.SPRINK PO SCH (08:41)
[2017-02-19] MEDS: BUDESONIDE 0.5 MG/2 ML NEBU NEB SCH (08:54)
[2017-02-19] MEDS: AZITHROMYCIN 500 MG in IV NORMAL SALINE 250ML 250 ML IV SCH (09:52)
[2017-02-19 10:44] VITALS: BP 115/62
[2017-02-19] MEDS: CHOLECALCIFEROL (VITAMIN D3) 1,000 UNIT TABLET PO SCH (11:38)
[2017-02-19] MEDS ORDERED: CHOL10003 PO (12:22)
[2017-02-19] MEDS ORDERED: ENOX40DI SQ (12:29)
[2017-02-19] MEDS ORDERED: INSU100C4 SQ (12:29)
[2017-02-19] MEDS ORDERED: PREN1TAB58 PO (12:38)
[2017-02-19] MEDS ORDERED: DOXY100T PO (12:40)
[2017-02-19] MEDS ORDERED: MAG355OR12 PO (15:15)
[2017-02-19] MEDS ORDERED: CLON0.5T3 PO (16:10)
--- NOTE | 2017-02-19 19:20 | DS ---
DATE OF DISCHARGE: 02/19/2017 DISPOSITION: Transfer back up to the [facility]. DISCHARGE DIAGNOSES: 1. [id number] respiratory failure, resolved. 2. Right lower lobe pneumonia with sepsis. 3. Schizoaffective disorder with paranoia. 4. Vitamin D deficiency. 5. Moderate protein malnutrition. 6. Iron deficiency. 7. Acute on chronic hypercapnic and hypoxemic respiratory failure. HOSPITAL COURSE: This is an 81-year-old female who was just admitted from [facility] in the morning after she was found to be with lethargic with 101 temperature. By protocol, she was transferred down the medical floor. She was found to have a questionable infiltrate in the right lower lobe, did have an elevated white count, and was started on antibiotics. She never had a fever after that and was switched to p.o. doxycycline today. She is alternating from being very cooperative and calm to being very agitated and combative and downright nasty. PHYSICAL EXAMINATION: VITAL SIGNS: On day of discharge 135/56, pulse 76, pulse ox 94% on 2 liters. HEENT: The patient's color is somewhat pale. NECK: Supple. LUNGS: Clear. CARDIOVASCULAR: Regular rhythm and rate. EXTREMITIES: Without edema. PLAN: To [facility]. IVAN LANGE DO DR: SID/cayetano JOB#: [id number] / [id number]
[2017-02-21] MEDS ORDERED: clonazePAM 0.5 MG TABLET PO SCH (09:00)
== END 2017-02-19 13:30 | DRG 871 ==
LOC: 1 SOUTH 08:05
PROVIDERS: ADMIT Family Medicine; ATTEND Family Medicine
DX: A41.9 Sepsis, unspecified organism (principal); J18.9 Pneumonia, unspecified organism; J96.21 Acute and chronic respiratory failure with hypoxia; J96.22 Acute and chronic respiratory failure with hypercapnia; J44.0 Chronic obstructive pulmonary disease with (acute) lower respiratory infection; E44.0 Moderate protein-calorie malnutrition; E11.9 Type 2 diabetes mellitus without complications; E55.9 Vitamin D deficiency, unspecified; E61.1 Iron deficiency; D64.9 Anemia, unspecified; F41.9 Anxiety disorder, unspecified; F91.9 Conduct disorder, unspecified; F22 Delusional disorders; F25.9 Schizoaffective disorder, unspecified; F31.9 Bipolar disorder, unspecified; F60.9 Personality disorder, unspecified; I10 Essential (primary) hypertension; Z87.440 Personal history of urinary (tract) infections; Z68.23 Body mass index [BMI] 23.0-23.9, adult; Z88.5 Allergy status to narcotic agent; Z88.2 Allergy status to sulfonamides; Z90.49 Acquired absence of other specified parts of digestive tract; Z90.721 Acquired absence of ovaries, unilateral; Z98.51 Tubal ligation status; Z79.899 Other long term (current) drug therapy; Z79.1 Long term (current) use of non-steroidal anti-inflammatories (NSAID)
CPT/HCPCS: 36415; 82947; 87641; 94640; J0456; J0696; J1650; J2920; J7050; J7620; J7626